=== PATIENT | female | born 1965 | race Caucasian/White ===

== ENCOUNTER 2021-10-22 13:16 | Emergency (ER) | payer SELFPAY ==
[2021-10-22] MEDS ORDERED: Acetaminophen/HYDROcodone 325-5 MG Tab PO ONE (13:46)
[2021-10-22] MEDS ORDERED: Ibuprofen 400 MG Tab PO ONE (15:34)
[2021-10-22] MEDS ORDERED: HYDROmorphone 2 MG Tab PO PRN (15:36)
== END 2021-10-22 16:26 | disposition home or self-care (01) ==
LOC: JP.ED 13:16
DX: S42.452A Displaced fracture of lateral condyle of left humerus, initial encounter for closed fracture (principal); S93.491A Sprain of other ligament of right ankle, initial encounter; F17.210 Nicotine dependence, cigarettes, uncomplicated; Z86.16 Personal history of COVID-19; X50.1XXA Overexertion from prolonged static or awkward postures, initial encounter
CPT/HCPCS: 73060; 73070; 73090; 73610; 99283; A9270